=== PATIENT | female | born 1950 | race African-American/Black ===

== ENCOUNTER 2018-04-11 16:08 | Emergency (ER) | payer MEDICARE ==
[~2018-04-11] VITALS: Ht 170.2 cm; Wt 70.9 kg
[2018-04-11] MEDS ORDERED: POVIDONE-IODINE 10% 15 ML SOLUTION UD TP ONE (17:00)
[2018-04-11] MEDS ORDERED: LIDOCAINE HCL 1% 10 ML VIAL INJ ONE (17:00)
[2018-04-11] MEDS ORDERED: IBUPROFEN 800 MG TABLET PO ONE (17:00)
[2018-04-11] MEDS ORDERED: LIDOCAINE HCL/PF 1% 30 ML VIAL INJ ONE (17:45)
[2018-04-11] MEDS ORDERED: BACITRACIN 0.9 GM PACKET OINTMENT TP ONE (18:15)
[2018-04-11 18:30] VITALS: BP 135/78
== END 2018-04-11 18:48 | disposition home or self-care (01) ==
LOC: EMS 16:10
DX: S61.012A Laceration without foreign body of left thumb without damage to nail, initial encounter (principal); W26.0XXA Contact with knife, initial encounter; Y93.89 Activity, other specified; Y92.89 Other specified places as the place of occurrence of the external cause; Y99.8 Other external cause status
CPT/HCPCS: 12002; 99284; J3490

== ENCOUNTER 2018-04-20 07:45 | Emergency (ER) | payer MEDICARE ==
[~2018-04-20] VITALS: Ht 170.2 cm; Wt 70.9 kg
[2018-04-20 08:08] VITALS: BP 154/85
== END 2018-04-20 08:21 | disposition home or self-care (01) ==
LOC: EMS 07:47
DX: S61.012D Laceration without foreign body of left thumb without damage to nail, subsequent encounter (principal); X58.XXXD Exposure to other specified factors, subsequent encounter
CPT/HCPCS: 99283